=== PATIENT | female | born 1970 | race African-American/Black ===

== ENCOUNTER 2017-09-23 02:54 | Emergency (ER) | payer BC ==
[2017-09-23 03:44] LABS: URINE BLOOD (Dip) POC Negative (NEGATIVE); URINE GLUCOSE (Dip) POC Negative (NEGATIVE); URINE KETONES (Dip) POC Negative (NEGATIVE); URINE LEUKOCYTE EST (Dip) POC Negative (NEGATIVE); URINE NITRITE (Dip) POC Negative (NEGATIVE); URINE TOTAL PROTEIN POC Negative (NEGATIVE)
[2017-09-23 03:44] LABS: URINE PH (Dip) POC 5.5 (5.0-8.5)
== END 2017-09-23 05:00 | disposition home or self-care (01) ==
LOC: E/R 02:54
DX: R10.32 Left lower quadrant pain (principal)
CPT/HCPCS: 36415; 81003; 81025; 84703; 99283